=== PATIENT | female | born 1985 | race Caucasian/White ===

== ENCOUNTER 2021-07-30 15:15 | Emergency (ER) | payer OTHER ==
[2021-07-30 19:19] LABS: BASOPHIL 0.3 % (0-2); EOSINOPHIL 0.1 % (0-5); HCT 39.6 % (37.0-47.0); HGB 12.9 g/dl (12.5-16.0); LYMPHOCYTE 16.7 % (15-48); MCHC 32.6 g/dL (32.0-36.0); MPV 9.8 fL (6.0-9.5); NEUTROPHIL 78.5 % (41-80); NRBC 0; PLT 322 K/uL (150-400); RBC 4.45 M/uL (4.20-5.40); RDW 13.4 % (11.5-14.0); WBC 17.9 K/uL (4.0-10.5)
[2021-07-30 19:42] LABS: BILIRUBIN NEGATIVE (NEGATIVE); BLOOD 3+ Ery/uL (NEGATIVE); COLOR YELLOW (YELLOW); GLUCOSE (U) NORMAL (NORMAL); LEUKOCYTES 1+ Leu/uL (NEGATIVE); NITRITE NEGATIVE (NEGATIVE); PROTEIN NEGATIVE (NEGATIVE); SPECIFIC GRAVITY 1.015 (1.001-1.030); UROBILINOGEN 0.2 mg/dL (0.2-1.0)
[2021-07-30 19:48] LABS: CLARITY SLIGHTLY HAZY (CLEAR)
[2021-07-30 19:51] LABS: BACTERIA 1+; MUCOUS TRACE
[2021-07-30 19:56] LABS: BUN/CREAT RATIO (CALC) 12.3 RATIO; CREATININE 0.81 mg/dL (0.51-0.95); POTASSIUM 3.7 mmol/L (3.5-5.1)
[2021-07-30] MEDS ORDERED: NAPROXEN500 MG PO (21:30)
[2021-07-30] MEDS ORDERED: BACLOFEN 10MG T10 MG PO (21:30)
== END 2021-07-30 21:50 | disposition home or self-care (01) ==
LOC: FER 15:15
PROVIDERS: Nurse Practitioner Family
DX: S06.9X9A Unspecified intracranial injury with loss of consciousness of unspecified duration, initial encounter (principal); S50.11XA Contusion of right forearm, initial encounter; M54.2 Cervicalgia; R10.9 Unspecified abdominal pain; M79.651 Pain in right thigh; F17.210 Nicotine dependence, cigarettes, uncomplicated; Z98.890 Other specified postprocedural states; Z88.2 Allergy status to sulfonamides; V49.40XA Driver injured in collision with unspecified motor vehicles in traffic accident, initial encounter; Y92.410 Unspecified street and highway as the place of occurrence of the external cause
CPT/HCPCS: 36415; 70450; 72125; 73090; 80048; 81001; 85025; 87088; J1100; J1885; J7030; Q9967